=== PATIENT | female | born 1955 | race Caucasian/White ===

== ENCOUNTER 2021-03-08 18:32 | Observation (INO) ==
[2021-03-08] MEDS ORDERED: SODIUM CHLORIDE 0.9% 1,000 ML IV STA (19:03)
[2021-03-08] MEDS ORDERED: ONDANSETRON ODT 4 MG TABLET PO ONE (19:07)
[2021-03-08 19:14] LABS: Basophils # 0.1 10*3/uL (0.0-0.2); Basophils % 0.6 % (0.0-0.8); Eosinophils # 0.1 10*3/uL (0.0-0.87); Eosinophils % 0.5 % (0.00-10.9); Hematocrit 43.5 VOL% (35.7-47.0); Hemoglobin 14.5 GM/DL (12.0-16.0); Immature Granulocytes % 0.5 %; Immature Granulocytes Absolute 0.06 #; Lymphocytes # 0.8 10*3/uL (1.4-4.0); Lymphocytes % 6.1 % (21.3-54.2); Mean Corpuscular HGB Conc 33.3 GM/DL (32-36); Mean Corpuscular Volume 86.1 FL (87-102); Mean Platelet Volume 11.7 FL (9.6-12.0); Monocytes % 5.8 % (1.7-12.7); Neutrophils % 86.5 % (38.7-73.9); Platelet Count 258 T/CUMM (130-400); Red Blood Count 5.05 MC/CUMM (3.8-5.5); Red Cell Distribution Width 14.4 % (9.3-17.3); White Blood Count 12.6 T/CUMM (4-12)
[2021-03-08 19:22] LABS: Albumin 3.1 G/DL (3.4-5.0); Bilirubin,Total 0.7 MG/DL (0.20-1.00); Calcium 9.1 MG/DL (8.5-10.1); Osmolality,Calculated 258.8 MOS/KG (273-304); Potassium 3.8 MMOL/L (3.5-5.1); Total Protein 6.8 G/DL (6.4-8.2)
[2021-03-08 19:23] LABS: INR 1.2; PT Patient Result 12.7 SECS (10.5-12.0)
[2021-03-08] MEDS ORDERED: methylPREDNISolone SOD SUC 125 MG/2 ML VIAL IV STA (20:04)
[2021-03-08] MEDS ORDERED: ALBUTEROL/IPRATROPIUM 3 ML NEB RESP TX STA (20:04)
[2021-03-08] MEDS ORDERED: LEVOFLOXACIN INJ 500 MG/100 ML PREMIX IV ONE (20:43)
[2021-03-09] MEDS ORDERED: hydrALAZINE 20 MG/1 ML VIAL IV PRN (00:16)
[2021-03-09] MEDS ORDERED: DEXTROSE 50% 25 GM/50 ML VIAL IV PRN (00:16)
[2021-03-09] MEDS ORDERED: ONDANSETRON 4 MG/2 ML VIAL IV PRN (00:16)
[2021-03-09] MEDS ORDERED: GLUCAGON 1 MG VIAL IM PRN (00:16)
[2021-03-09] MEDS: SODIUM CHLORIDE 0.9% 1,000 ML IV SCH ×3 (00:28→21:49)
[2021-03-09] MEDS: ALBUTEROL/IPRATROPIUM 3 ML NEB RESP TX SCH ×4 (00:57→19:33)
[2021-03-09] MEDS: ACETAMINOPHEN 325 MG TABLET PO PRN (05:32)
[2021-03-09 08:13] LABS: Basophils % 0.2 % (0.0-0.8); Hematocrit 41.6 VOL% (35.7-47.0); Hemoglobin 13.8 GM/DL (12.0-16.0); Immature Granulocytes % 0.4 %; Immature Granulocytes Absolute 0.04 #; Lymphocytes # 0.6 10*3/uL (1.4-4.0); Lymphocytes % 5.8 % (21.3-54.2); Mean Corpuscular HGB Conc 33.2 GM/DL (32-36); Mean Corpuscular Volume 85.8 FL (87-102); Mean Platelet Volume 11.2 FL (9.6-12.0); Monocytes % 1.9 % (1.7-12.7); Neutrophils % 91.7 % (38.7-73.9); Platelet Count 242 T/CUMM (130-400); Red Blood Count 4.85 MC/CUMM (3.8-5.5); Red Cell Distribution Width 14.1 % (9.3-17.3); White Blood Count 10.6 T/CUMM (4-12)
[2021-03-09 08:39] LABS: Calcium 9.2 MG/DL (8.5-10.1); Osmolality,Calculated 258.9 MOS/KG (273-304); Potassium 3.3 MMOL/L (3.5-5.1); Risk Ratio 1.9; Thyroid Stimulating Hormone 1.89 uIU/ml (0.358-3.74); VLDL Cholesterol 8.2 MG/DL
[2021-03-09 08:40] LABS: Band Neutrophils 4 % (0-10); Lymphocytes 6 % (20-55); Platelet Estimate Adequate; Segmented Neutrophils 88 % (50-85); Total Cells Counted 100
[2021-03-09] MEDS: methylPREDNISolone SOD SUC 125 MG/2 ML VIAL IV SCH ×2 (09:49→17:05)
[2021-03-09] MEDS: ENOXAPARIN 40 MG/0.4 ML SYRINGE SUBCUT SCH (09:49)
[2021-03-09] MEDS: METOPROLOL TARTRATE 25 MG TABLET PO SCH ×2 (10:06→21:38)
[2021-03-09] MEDS: GABAPENTIN 300 MG CAPSULE PO SCH ×3 (10:06→21:40)
[2021-03-09] MEDS: ATORVASTATIN 10 MG TABLET PO SCH (10:06)
[2021-03-09] MEDS: PANTOPRAZOLE 40 MG TABLET PO SCH (10:07)
[2021-03-09] MEDS: buPROPion XL 150 MG TABLET PO SCH (10:07)
[2021-03-09] MEDS: NON-FORMULARY MEDICATION (Fluticasone-Umeclidin-Vilanter [Trelegy Ellipta] 100-62.5-25 mcg INH SCH (12:13)
[2021-03-09] MEDS: amLODIPine 5 MG TABLET PO SCH (12:13)
[2021-03-09] MEDS: ASPIRIN EC 81 MG TABLET PO SCH (21:40)
[2021-03-09] MEDS: MONTELUKAST 10 MG TABLET PO SCH (21:40)
[2021-03-09] MEDS: LEVOFLOXACIN INJ 500 MG/100 ML PREMIX IV SCH (21:48)
[2021-03-10] MEDS: ALBUTEROL/IPRATROPIUM 3 ML NEB RESP TX SCH ×4 (01:08→20:14)
[2021-03-10] MEDS: methylPREDNISolone SOD SUC 125 MG/2 ML VIAL IV SCH ×2 (06:18→18:50)
[2021-03-10 06:25] LABS: Basophils # 0.1 10*3/uL (0.0-0.2); Basophils % 0.4 % (0.0-0.8); Hematocrit 36.5 VOL% (35.7-47.0); Hemoglobin 12.2 GM/DL (12.0-16.0); Immature Granulocytes % 0.7 %; Immature Granulocytes Absolute 0.09 #; Lymphocytes # 1.1 10*3/uL (1.4-4.0); Lymphocytes % 8.2 % (21.3-54.2); Mean Corpuscular HGB Conc 33.4 GM/DL (32-36); Mean Corpuscular Volume 86.7 FL (87-102); Mean Platelet Volume 11.4 FL (9.6-12.0); Monocytes % 4.6 % (1.7-12.7); Neutrophils % 86.1 % (38.7-73.9); Platelet Count 237 T/CUMM (130-400); Red Blood Count 4.21 MC/CUMM (3.8-5.5); Red Cell Distribution Width 13.9 % (9.3-17.3); White Blood Count 13.2 T/CUMM (4-12)
[2021-03-10 06:33] LABS: Calcium 8.7 MG/DL (8.5-10.1); Osmolality,Calculated 269.2 MOS/KG (273-304); Potassium 3.5 MMOL/L (3.5-5.1)
[2021-03-10] MEDS: buPROPion XL 150 MG TABLET PO SCH (09:24)
[2021-03-10] MEDS: GABAPENTIN 300 MG CAPSULE PO SCH ×3 (09:25→21:30)
[2021-03-10] MEDS: amLODIPine 5 MG TABLET PO SCH (09:25)
[2021-03-10] MEDS: METOPROLOL TARTRATE 25 MG TABLET PO SCH ×2 (09:25→21:32)
[2021-03-10] MEDS: ATORVASTATIN 10 MG TABLET PO SCH (09:25)
[2021-03-10] MEDS: PANTOPRAZOLE 40 MG TABLET PO SCH (09:25)
[2021-03-10] MEDS: ENOXAPARIN 40 MG/0.4 ML SYRINGE SUBCUT SCH (09:25)
[2021-03-10] MEDS: SODIUM CHLORIDE 0.9% 1,000 ML IV SCH ×2 (11:17→19:36)
[2021-03-10] MEDS: NON-FORMULARY MEDICATION (Fluticasone-Umeclidin-Vilanter [Trelegy Ellipta] 100-62.5-25 mcg INH SCH (11:18)
[2021-03-10] MEDS: LEVOFLOXACIN INJ 500 MG/100 ML PREMIX IV SCH (21:28)
[2021-03-10] MEDS: MONTELUKAST 10 MG TABLET PO SCH (21:29)
[2021-03-10] MEDS: ASPIRIN EC 81 MG TABLET PO SCH (21:30)
[2021-03-11] MEDS: ALBUTEROL/IPRATROPIUM 3 ML NEB RESP TX SCH ×4 (00:11→19:15)
[2021-03-11] MEDS: SODIUM CHLORIDE 0.9% 1,000 ML IV SCH ×2 (03:05→17:08)
[2021-03-11 06:09] LABS: Basophils % 0.1 % (0.0-0.8); Hemoglobin 12.7 GM/DL (12.0-16.0); Immature Granulocytes % 0.6 %; Immature Granulocytes Absolute 0.08 #; Lymphocytes # 0.8 10*3/uL (1.4-4.0); Mean Corpuscular HGB Conc 32.6 GM/DL (32-36); Mean Corpuscular Volume 88.6 FL (87-102); Mean Platelet Volume 11.1 FL (9.6-12.0); Monocytes % 4.2 % (1.7-12.7); Neutrophils % 89.1 % (38.7-73.9); Platelet Count 334 T/CUMM (130-400); Red Cell Distribution Width 14.3 % (9.3-17.3); White Blood Count 13.5 T/CUMM (4-12)
[2021-03-11 06:19] LABS: Calcium 8.4 MG/DL (8.5-10.1); Osmolality,Calculated 267.2 MOS/KG (273-304); Potassium 3.5 MMOL/L (3.5-5.1)
[2021-03-11] MEDS: methylPREDNISolone SOD SUC 125 MG/2 ML VIAL IV SCH ×2 (06:42→17:47)
[2021-03-11] MEDS: PANTOPRAZOLE 40 MG TABLET PO SCH (09:20)
[2021-03-11] MEDS: buPROPion XL 150 MG TABLET PO SCH (09:20)
[2021-03-11] MEDS: GABAPENTIN 300 MG CAPSULE PO SCH ×3 (09:20→21:20)
[2021-03-11] MEDS: amLODIPine 5 MG TABLET PO SCH (09:20)
[2021-03-11] MEDS: METOPROLOL TARTRATE 25 MG TABLET PO SCH ×2 (09:20→21:20)
[2021-03-11] MEDS: ATORVASTATIN 10 MG TABLET PO SCH (09:20)
[2021-03-11] MEDS: NON-FORMULARY MEDICATION (Fluticasone-Umeclidin-Vilanter [Trelegy Ellipta] 100-62.5-25 mcg INH SCH (09:21)
[2021-03-11] MEDS: ENOXAPARIN 40 MG/0.4 ML SYRINGE SUBCUT SCH (09:21)
[2021-03-11] MEDS: ACETAMINOPHEN 325 MG TABLET PO PRN (18:46)
[2021-03-11] MEDS: LEVOFLOXACIN INJ 500 MG/100 ML PREMIX IV SCH (21:20)
[2021-03-11] MEDS: MONTELUKAST 10 MG TABLET PO SCH (21:21)
[2021-03-11] MEDS: ASPIRIN EC 81 MG TABLET PO SCH (21:21)
[2021-03-12] MEDS: ALBUTEROL/IPRATROPIUM 3 ML NEB RESP TX SCH ×3 (01:22→14:43)
[2021-03-12 05:29] LABS: Basophils % 0.2 % (0.0-0.8); Hematocrit 35.5 VOL% (35.7-47.0); Hemoglobin 11.8 GM/DL (12.0-16.0); Immature Granulocytes Absolute 0.09 #; Mean Corpuscular HGB Conc 33.2 GM/DL (32-36); Mean Corpuscular Volume 87.9 FL (87-102); Mean Platelet Volume 11.4 FL (9.6-12.0); Monocytes % 9.7 % (1.7-12.7); Neutrophils % 77.1 % (38.7-73.9); Platelet Count 294 T/CUMM (130-400); Red Blood Count 4.04 MC/CUMM (3.8-5.5); Red Cell Distribution Width 14.3 % (9.3-17.3); White Blood Count 8.6 T/CUMM (4-12)
[2021-03-12 05:41] LABS: Osmolality,Calculated 272.7 MOS/KG (273-304); Potassium 3.2 MMOL/L (3.5-5.1)
[2021-03-12] MEDS: methylPREDNISolone SOD SUC 125 MG/2 ML VIAL IV SCH (06:57)
[2021-03-12] MEDS: SODIUM CHLORIDE 0.9% 1,000 ML IV SCH ×2 (09:20→11:12)
[2021-03-12] MEDS: NON-FORMULARY MEDICATION (Fluticasone-Umeclidin-Vilanter [Trelegy Ellipta] 100-62.5-25 mcg INH SCH (09:21)
[2021-03-12] MEDS: POTASSIUM CHLORIDE 20 MEQ TABLET PO PRN ×2 (09:22→11:13)
[2021-03-12] MEDS: GABAPENTIN 300 MG CAPSULE PO SCH (09:22)
[2021-03-12] MEDS: amLODIPine 5 MG TABLET PO SCH (09:23)
[2021-03-12] MEDS: METOPROLOL TARTRATE 25 MG TABLET PO SCH (09:23)
[2021-03-12] MEDS: PANTOPRAZOLE 40 MG TABLET PO SCH (09:23)
[2021-03-12] MEDS: ATORVASTATIN 10 MG TABLET PO SCH (09:23)
[2021-03-12] MEDS: buPROPion XL 150 MG TABLET PO SCH (09:24)
[2021-03-12] MEDS: ENOXAPARIN 40 MG/0.4 ML SYRINGE SUBCUT SCH (09:24)
[2021-03-12 10:39] VITALS: BP 150/89
== END 2021-03-12 14:15 | disposition home or self-care (01) ==
LOC: EDBD → EDUNIT# → N.EDINP 18:32 → N.ED 18:32 → N.4E 03-09 13:57
PROVIDERS: ADMIT Emergency Medicine; ATTEND Emergency Medicine